=== PATIENT | female | born 1955 | race Caucasian/White ===

== ENCOUNTER 2023-11-04 12:23 | Emergency (ER) | payer MEDICARE, SELFPAY ==
[2023-11-04 13:02] VITALS: BP 147/71; PULSE 77; RESP 18; TEMP 37.1; O2SAT 96; BMI 21.0
--- NOTE | 2023-11-04 15:25 | ED.GENADULT ---
HPI - General Adult General Date Seen: 11/04/23 Chief complaint: Abdominal Pain Stated complaint: Diverticulitis Time Seen by Provider: 11/04/23 14:42 History of Present Illness HPI narrative: This is 68-year-old female presenting to the ER today for abdominal pain. She is generally healthy but does have a history of diverticulitis. She has been experiencing left lower quadrant abdominal pain that initially began in August around the time of and lasted for a few weeks. It seemed to get better when she went to a clear liquid diet and was better for a couple weeks that then came back in September around [place] time. He was again better for a couple of weeks but has now been flaring again for the past 2-3 weeks at home. She has been trying to restrict what she is eating and stick to a clear liquid diet. As result she has lost about 9 lb. She has not had any fever. She has been having some loose stools and diarrhea for the past couple weeks but no bloody or mucousy or black stools. No nausea or vomiting. No upper abdominal pain. Pain is predominantly in the left and a little bit in the suprapubic region of her abdomen. She has been trying to manage her diverticulitis at home so has not seen her doctor a van on antibiotics. Related Data Home Medications Medication Instructions Recorded Confirmed fluocinonide 0.05 % topical topical BID PRN 11/04/23 solution ketoconazole 2 % shampoo topical 11/04/23 Previous Rx's Medication Instructions Recorded hydrocodone 5 mg-acetaminophen 325 1 tab PO Q4-6H PRN pain #10 tabs 11/04/23 mg tablet Allergies Allergy/AdvReac Type Severity Reaction Status Date / Time cinnamon Allergy Intermediate Hives Verified 11/04/23 16:49 mint Allergy Intermediate Swelling Verified 11/04/23 16:49 of Lip/Tongue/Throat pineapple Allergy Intermediate Swelling Verified 11/04/23 16:49 of Lip/Tongue/Throat essential oil Allergy Intermediate Swelling Uncoded 11/04/23 16:49 of Lip/Tongue/Throat coello feather plant Allergy Intermediate Hives Uncoded 11/04/23 16:49 PFSH PFSH Social History Smoking Status: Never smoker Non-prescribed substance use: denies use Exam Narrative: Exam Narrative: Constitutional: Appears well-developed and well-nourished. Alert. Conversant. Non toxic. HENT: Head: Atraumatic. Nose: Nose normal. Mouth/Throat: Oral mucosa is clear and moist. no trismus. Pharynx normal. Tonsils symmetric. No tonsillar enlargement, erythema, or exudate. Eyes: Conjunctivae normal. EOM normal. Pupils equal, round, and reactive to light. No scleral icterus. Neck: Normal range of motion. Neck supple. No tracheal deviation present. Cardiovascular: Normal rate, regular rhythm. No gallop. No friction rub. No murmur heard. Symmetric radial artery pulses Pulmonary/Chest: Effort normal. No stridor. No respiratory distress. No wheezes. No rales. No rhonchi . No tenderness. Abdominal: Soft. Bowel sounds normal. No distension. No mass. Left lower quadrant and suprapubic> left upper quadrant tenderness. No rebound. No guarding. No CVA tenderness. Musculoskeletal: RUE: Normal range of motion. No tenderness. No deformity LUE: Normal range of motion. No tenderness. No deformity RLE: Normal range of motion. No edema. No tenderness. No deformity LLE: Normal range of motion. No edema. No tenderness. No deformity Neurological: Alert and oriented to person, place, and time. Normal strength. CN II-VII intact. No sensory deficit. GCS eye subscore is 4. GCS verbal subscore is 5. GCS motor subscore is 6. Normal coordination Skin: Skin is warm and dry. No rash noted. No pallor. Normal capillary refill. Psychiatric: Normal mood. Normal affect. Const: Vital Signs, click to edit/add: Vital Signs - 24 hr 11/04/23 13:02 11/04/23 17:49 Temperature 98.8 F Pulse Rate [Pulse Oximeter] 77 82 Respiratory Rate 18 16 Blood Pressure [Ri t Upper Arm] 147/71 H 142/80 H Pulse Oximetry 96 97 Oxygen Delivery Me thod Room Air Room Air Course Vital Signs Vital signs: Initial Vital Signs Temperature 98.8 F 11/04/23 13:02 Temperature Source Temporal Artery Scan 11/04/23 13:02 Pulse Rate 77 11/04/23 13:02 Respiratory Rate 18 11/04/23 13:02 Blood Pressure 147/71 H 11/04/23 13:02 Blood Pressure Mean 96 11/04/23 13:02 Blood Pressure Position Sitting 11/04/23 13:02 Pulse Oximetry 96 11/04/23 13:02 Oxygen Delivery Method Room Air 11/04/23 13:02 Vital Signs Temperature 98.8 F 11/04/23 13:02 Pulse Rate 77 11/04/23 13:02 Respiratory Rate 18 11/04/23 13:02 Blood Pressure 147/71 H 11/04/23 13:02 Pulse Oximetry 96 11/04/23 13:02 Oxygen Delivery Method Room Air 11/04/23 13:02 Temperature 98.8 F 11/04/23 13:02 Pulse Rate 82 11/04/23 17:49 Respiratory Rate 16 11/04/23 17:49 Blood Pressure 142/80 H 11/04/23 17:49 Pulse Oximetry 97 11/04/23 17:49 Oxygen Delivery Method Room Air 11/04/23 17:49 Medical Decision Making MDM Narrative Medical decision making narrative: Presented to the Emergency Department with intermittent left-sided abdominal pain for the past couple of months but flaring for the past couple of weeks.. The differential diagnosis of abdominal pain includes: Diverticulitis, perforation, abscess, colitis Bowel Obstruction, Ulcer, Ischemia, Cholecystitis, Diverticulitis, Pancreatitis, UTI, kidney stone, Enteritis/Colitis, amongst many other etiologies. Laboratory testing does not reveal a cause for the patient's pain. CT Imaging is concerning for possible rectosigmoid malignancy with 2 other masses in the abdominal cavity that are suspicious for Mets. Discussed with our on-call surgeon, Dr. Blum. Dr. Miller recommends close outpatient follow-up with her in clinic for outpatient colonoscopy to do biopsy. We were able to place orders for colonoscopy here in the ER today. A colonoscopy scheduled as contact patient tomorrow morning to set up a further workup, this week. Patient will call the colonoscopy clinic if she does not receive a phone call by 2:00 p.m. tomorrow. Discussed with the patient and her in detail. Discussed are strong concerned that this is malignancy but that the exact etiology of the abdominal pain is not clear at this time. . I discussed the uncertainty about the diagnosis and answered the patient's questions. Abdominal pain return precautions discussed. Discussed the need to keep her stools soft to avoid obstruction and also gave a prescription for [place] that she can use only if needed for significant pain. She will return to the ER if she has worsening or uncontrolled symptoms. Lab Data Labs: Lab Results 11/04/23 11/04/23 Range/Units 16:00 16:50 WBC 8.38 (4.50-11.00) K/uL RBC 4.22 (4.00-5.20) m/uL Hgb 12.6 (12.0-16.0) gm/dL Hct 37.4 (33.0-51.0) % MCV 89 (80-100) fL MCH 30 (26-34) pg MCHC 34 (32-36) gm/dL RDW Coeff of [place] 12.5 (11.5-15.5) % Plt Count 428 (140-440) K/uL Neut % (Auto) 70.7 (42.0-72.0) % Lymph % (Auto) 16.8 L (20-44) % [place] % (Auto) 9.5 (0.0-11.0) % Eos % (Auto) 1.3 (0.0-7.0) % Baso % (Auto) 0.6 (0.0-3.0) % Neut # (Auto) 5.92 (1.7-7.0) K/uL Lymph # (Auto) 1.40 (0.90-2.90) K/uL [place] # (Auto) 0.80 (0.00-0.90) K/UL Eos # (Auto) 0.11 (0.00-0.50) K/uL Baso # (Auto) 0.05 (0.00-0.30) K/uL Abs Immat Gran (auto) 0.09 (0.00-0.30) K/uL Imm/Tot Granulo (auto) 1.1 % Sodium 133 L (135-149) mmol/L Potassium 3.9 (3.6-5.1) mmol/L Chloride 97 (96-114) mmol/L Carbon Dioxide 26 (20-32) mmol/L Anion Gap 10 (7-15) mEq/L BUN 6 L (7-30) mg/dL Creatinine 0.7 (0.5-1.5) mg/dL Estimated Creat Clear 43.77 Estimated GFR 95 ml/min Glucose 95 (60-115) mg/dL Lactate 0.4 L (0.5-1.9) mmol/L Calcium 9.1 (8.4-10.6) mg/dL Total Bilirubin 0.8 (0.1-1.5) mg/dL AST 31 (12-35) U/L ALT 14 (4-35) U/L Alkaline Phosphatase 91 (40-150) U/L Total Protein 8.2 (6.0-8.3) g/dL Albumin 4.6 (3.3-5.0) g/dL Lipase 36 (23-300) U/L Urine Color Yellow (Yellow) Urine Appearance Clear (Clear) Urine pH 7.5 (5.0-8.5) Ur Specific [place] 1.010 (1.000-1.030) Urine Protein Negative (Negative) Urine Glucose (UA) Negative (Negative) Urine Ketones Trace A (Negative) Urine Blood Trace-intact A (Negative) Urine Nitrite Negative (Negative) Urine Bilirubin Negative (Negative) Urine Urobilinogen 0.2 (0.2-1.0) Ur Leukocyte Esterase 1+ A (Negative) Urine RBC 2-5 A (0-2) Urine WBC 0-2 (0-5) Ur Squamous Epith Cells None (None-Few) Urine Bacteria None (None) Imaging Data CT scan - abdomen: Attestation: I have reviewed the pertinent imaging results. Radiologist's impression: IMPRESSION: 1. 54 millimeter masslike abnormality arising at the rectosigmoid junction, likely malignancy. 2. 42 millimeter omental masses surrounding fat stranding, likely a metastatic deposit 3. 40 millimeter bulky nelda mass at the right lower quadrant extending into the inguinal canal, also likely metastatic. 4. GI and oncology consult/direct inspection of the sigmoid lesion is recommended. Discharge Plan Discharge Clinical Impression: Colonic mass Patient Disposition: Home, Self-Care Condition: Stable Additional Instructions: As we discussed, your CT scan is concerning and shows some abnormalities around your rectosigmoid colon and 2 other spots inside your abdominal cavity. We do not know what these spots are, but we are worried that these could be colon cancer. You need further testing. The 1st step is to get a biopsy done by colonoscopy. You will receive a phone call tomorrow morning to set up your colonoscopy. If you do not receive a phone call by 2:00 p.m. tomorrow, call [phone] to talk to the colonoscopy schedulers. If you have worsening pain, fever, bloody or black stools, weakness, or any concerns, please come back to the ER right away. Please use MiraLax or Metamucil to help keep her stool soft. He had a regular diet. Use prescription pain killers only if needed for severe pain but be careful because they can cause drowsiness and side effects. Prescriptions: New hydrocodone-acetaminophen 5-325 mg tablet 1 tab PO Q4-6H PRN (Reason: pain) Qty: 10 0RF No Action ketoconazole 2 % shampoo topical fluocinonide 0.05 % solution topical BID PRN Follow Up/Referrals: Heike Bishop PA-C [Primary Care Provider] - Stand Alone Forms: [employer] Info Instructions
--- NOTE | 2023-11-04 15:36 | CRLHL7_ITS ---
For Patients: As a result of the Century Cures Act, medical imaging exams and procedure reports are released immediately into your electronic medical record. You may view this report before your referring provider. If you have questions, please contact your health care provider. INDICATION: Lower abdominal pain. Diarrhea. TECHNIQUE: CT the abdomen and pelvis with 86 cc of Isovue 370 intravenous contrast. Multiplanar reformats are included. COMPARISON: CT abdomen/pelvis from 12/11/2019. FINDINGS: Lower chest: Within normal limits. ABDOMEN/PELVIS: Liver: Normal in size and attenuation. No suspicious masses. Gallbladder and bile ducts: No stones or inflammation. No biliary dilatation. Pancreas: Unremarkable. No mass or inflammation. Spleen: Normal in size. No masses. Adrenal glands: Normal in size. No nodules. Kidneys: Normal in size. No suspicious masses, stones, or hydronephrosis. GI tract/omentum/peritoneal: There is a 54 millimeter masslike abnormality arising from the wall of the sigmoid colon at the rectosigmoid junction. There is a 37 x 42 millimeter oval heterogenously enhancing mass within the omentum. There is surrounding fat stranding. No dilated loops of bowel. Appendix within normal limits. Vasculature: Major vessels are patent. Lymph nodes: There is a 40 millimeter oblong mass within the right anterior lower abdomen with extension into the inguinal canal. This may represent a bulky pathologic lymph node. Pelvis: Unremarkable. No pelvic masses. OSSEOUS STRUCTURES: At L5-S1, and grade 2 anterolisthesis and bilateral L5 pars defects. Chronic appearing. No acute fractures of acute osseous abnormalities. No lytic or blastic osseous lesions. IMPRESSION: 1. 54 millimeter masslike abnormality arising at the rectosigmoid junction, likely malignancy. 2. 42 millimeter omental masses surrounding fat stranding, likely a metastatic deposit 3. 40 millimeter bulky nelda mass at the right lower quadrant extending into the inguinal canal, also likely metastatic. 4. GI and oncology consult/direct inspection of the sigmoid lesion is recommended. Please note that all CT scans at this facility use dose modulation, iterative reconstruction, and/or weight-based dosing when appropriate to reduce radiation dose to as low as reasonably achievable. Dictated by Win Argueta MD @ 11/04/2023 5:49:45 PM (Electronically Signed)
[2023-11-04 16:10] LABS: Lactate* 0.4 mmol/L (0.5-1.9)
[2023-11-04 16:14] LABS: Basophils Absolute Auto 0.05 K/uL (0.00-0.30); Basophils Percent Auto 0.6 % (0.0-3.0); Eosinophils Absolute Auto 0.11 K/uL (0.00-0.50); Eosinophils Percent Auto 1.3 % (0.0-7.0); Hematocrit 37.4 % (33.0-51.0); Hemoglobin* 12.6 gm/dL (12.0-16.0); Immature Granulocytes Abs Auto 0.09 K/uL (0.00-0.30); Immature Granulocytes Pct Auto 1.1 %; Lymphocytes Percent Auto 16.8 % (20-44); Mean Corpuscular HGB Conc 34 gm/dL (32-36); Mean Corpuscular Hemoglobin 30 pg (26-34); Mean Corpuscular Volume 89 fL (80-100); Monocytes Percent Auto 9.5 % (0.0-11.0); Neutrophils Absolute Auto 5.92 K/uL (1.7-7.0); Neutrophils Percent Auto 70.7 % (42.0-72.0); Platelet Count* 428 K/uL (140-440); RDW Coefficient of Variation % 12.5 % (11.5-15.5); Red Blood Count 4.22 m/uL (4.00-5.20); White Blood Count* 8.38 K/uL (4.50-11.00)
[2023-11-04 16:25] LABS: Slide Review Reflex No
[2023-11-04 16:28] LABS: Albumin* 4.6 g/dL (3.3-5.0); Chloride* 97 mmol/L (96-114); Sodium* 133 mmol/L (135-149)
[2023-11-04 16:29] LABS: Potassium* 3.9 mmol/L (3.6-5.1)
[2023-11-04 16:31] LABS: Alkaline Phosphatase* 91 U/L (40-150); Anion Gap 10 mEq/L (7-15); Aspartate Amino Transferase* 31 U/L (12-35); Bilirubin Total* 0.8 mg/dL (0.1-1.5); Blood Urea Nitrogen* 6 mg/dL (7-30); Carbon Dioxide* 26 mmol/L (20-32); Creatinine* 0.7 mg/dL (0.5-1.5); Est. Creatinine Clearance* 43.77; Estimated Glomerular Filt Rate 95 ml/min; Glucose* 95 mg/dL (60-115); Total Protein* 8.2 g/dL (6.0-8.3)
[2023-11-04 16:32] LABS: Alanine Aminotransferase* 14 U/L (4-35); Calcium* 9.1 mg/dL (8.4-10.6); Lipase* 36 U/L (23-300)
[2023-11-04 17:01] LABS: Appearance Urine Clear (Clear); Bilirubin Urine Negative (Negative); Blood Urine Trace-intact (Negative); Color Urine Yellow (Yellow); Glucose Urine Negative (Negative); Ketones Urine Trace (Negative); Leukocyte Esterase Urine 1+ (Negative); Nitrite Urine Negative (Negative); Protein Urine Negative (Negative); Urobilinogen Urine 0.2 (0.2-1.0); pH Urine 7.5 (5.0-8.5)
[2023-11-04 17:40] LABS: WBC Urine 0-2 (0-5)
[2023-11-04 17:49] VITALS: BP 142/80; PULSE 82; RESP 16; O2SAT 97
== END 2023-11-04 18:58 | disposition home or self-care (01) ==
PROVIDERS: Emergency Provider Emergency Medicine; PCP Physician Assistant
DX: K63.9 Disease of intestine, unspecified (principal)
CPT/HCPCS: 36415; 74177; 80053; 81001; 83605; 83690; 85025; 87086; 99284; 99285; Q9967

== ENCOUNTER 2023-11-08 06:51 | Outpatient (CLI) | payer MEDICARE, SELFPAY ==
--- NOTE | 2023-11-08 08:36 | W.ANESCHARGE ---
Anesthesia Charges Start Date/Time Anesthesia Start Date: 11/08/23 Anesthesia Start Time: 07:53 Stop Date/Time Anesthesia Stop Date: 11/08/23 Anesthesia Stop Time: 08:32
[2023-11-08 09:38] LABS: Creatinine* 0.6 mg/dL (0.5-1.5); Estimated Glomerular Filt Rate 99 ml/min
--- NOTE | 2023-11-08 10:15 | CRLHL7_ITS ---
For Patients: As a result of the Century Cures Act, medical imaging exams and procedure reports are released immediately into your electronic medical record. You may view this report before your referring provider. If you have questions, please contact your health care provider. RLQ MASS, BIOPSY CLINICAL HISTORY: Right lower quadrant soft tissue mass. Perirectal mass. Possible colon cancer or lymphoma. COMPARISON STUDIES: CT 11/04/2023 TECHNIQUE: Real-time ultrasound with image documentation was used for targeting the soft tissue lesion. Core biopsy specimens were obtained using an automated gun with a 18-gauge biopsy needle. CONSENT and TIME OUT: The procedure, risks, and alternatives were explained to the patient and a consent was signed. [facility] Protocol was followed including pre-procedure verification that relevant information/documentation was available, reviewed and properly matched to the patient; consent accurate and complete; and equipment and supplies available. Time Out was conducted just prior to starting procedure to verify the four required elements: patient identity, correct side/site marked (if applicable), procedure, relevant images/results properly labeled and displayed (if applicable). PROCEDURE: The patient was positioned supine on the ultrasound table. The right lower quadrant scan was prepped with ChloraPrep. 10 cc of 1 percent lidocaine used for local anesthesia. Core samples were obtained. The specimens were placed in 10% formalin and sent to the pathology department. Pressure was held on the biopsy site until all bleeding subsided. The skin incision was closed with Steri-Strips. LATERALITY: Right lower quadrant soft tissues along the external iliac chain. LESION: Solid circumscribed hypoechoic mass measuring 3.6 x 3.5 x 2.7 cm. SUSPICION FOR MALIGNANCY: High NUMBER OF SAMPLES: 5 IMPRESSION: Ultrasound-guided soft tissue mass biopsy. Dictated by Barry Hernandez MD @ 11/08/2023 12:26:35 PM (Electronically Signed)
--- NOTE | 2023-11-08 13:00 | CRLHL7_ITS ---
For Patients: As a result of the Century Cures Act, medical imaging exams and procedure reports are released immediately into your electronic medical record. You may view this report before your referring provider. If you have questions, please contact your health care provider. INDICATION: Abdominal masses. Rule out metastatic disease TECHNIQUE: Volumetric helical scanning of the thorax was performed with 80 cc of Isovue 370 contrast material IV. Coronal and sagittal reconstructions were obtained. COMPARISON: Abdomen/pelvis CT of 11/04/2023 FINDINGS: No suspicious pulmonary nodule is demonstrated. There is no mediastinal or hilar lymphadenopathy. The lungs are clear. There is no significant airway abnormality. No pleural effusion is demonstrated. The heart size is normal. Images of the upper abdomen are unremarkable. IMPRESSION: Negative chest CT Please note that all CT scans at this facility use dose modulation, iterative reconstruction, and/or weight-based dosing when appropriate to reduce radiation dose to as low as reasonably achievable. Dictated by Johnny Torre MD @ 11/09/2023 7:04:56 AM (Electronically Signed)
[2023-11-10 01:08] LABS: Carcinoembryonic Antigen 2.8 ng/mL (<=3.8)
== END 2023-11-08 06:52 | disposition home or self-care (01) ==
PROVIDERS: PCP Physician Assistant; Visit Provider Surgery
DX: Z01.818 Encounter for other preprocedural examination (principal); R10.84 Generalized abdominal pain
CPT/HCPCS: 00812; 36415; 38505; 45381; 71260; 76942; 82378; 82565; 88305; 88341; 88342; J2704; Q9967

== ENCOUNTER 2023-11-13 13:02 | Outpatient (CLI) | payer MEDICARE, SELFPAY | END 2023-11-13 13:03 | disposition home or self-care (01) | LOC: NFLDREF 11-16 05:52 | PROVIDERS: PCP Physician Assistant; Referring Provider Physician Assistant; Visit Provider Surgery | DX: C56.1 Malignant neoplasm of right ovary (principal) | CPT/HCPCS: 86304 ==

== ENCOUNTER 2024-09-05 08:50 | Outpatient (CLI) | payer MEDICARE, SELFPAY | END 2024-09-05 08:51 | disposition home or self-care (01) | LOC: NFLDREF 14:30 | PROVIDERS: PCP Emergency Medicine; Referring Provider Emergency Medicine; Visit Provider Emergency Medicine | DX: I10 Essential (primary) hypertension (principal); R20.2 Paresthesia of skin; Z13.1 Encounter for screening for diabetes mellitus; Z13.820 Encounter for screening for osteoporosis | CPT/HCPCS: 80048; 80061; 82607 ==

== ENCOUNTER 2024-11-19 12:45 | Outpatient (CLI) | payer MEDICARE, SELFPAY | END 2024-11-19 12:46 | disposition home or self-care (01) | LOC: RAD 12:48 | PROVIDERS: PCP Emergency Medicine; Visit Provider Emergency Medicine | DX: Z12.31 Encounter for screening mammogram for malignant neoplasm of breast (principal); R92.333 Mammographic heterogeneous density, bilateral breasts; Z13.820 Encounter for screening for osteoporosis; M81.0 Age-related osteoporosis without current pathological fracture | CPT/HCPCS: 77063; 77067; 77080 ==